=== PATIENT | female | born 1975 | race Caucasian/White ===

== ENCOUNTER 2017-05-12 20:35 | Emergency (ER) | payer SELFPAY ==
[~2017-05-12] VITALS: Ht 165.1 cm; Wt 59.0 kg
[2017-05-13] MEDS ORDERED: LORAZEPAM 2MG/ML CPJ IV ONE
[2017-05-13 00:09] LABS: BASOPHILS % 0.3 % (0.0-2.0); EOSINOPHILS % 0.6 % (0.0-5.0); HEMATOCRIT. 39.2 % (36.0-48.0); HEMOGLOBIN. 13.9 g/dL (12.0-16.0); LYMPHOCYTES % 19.1 % (20.0-50.0); MEAN CORPUSCULAR HEMOGLOBIN 33.3 pg (28.0-32.0); MEAN PLATELET VOLUME 8.4 fl (7.4-10.4); MONOCYTES % 8.6 % (2.0-8.0); NEUTROPHILS % 71.4 % (40.0-76.0); PLATELET 268 x1000/uL (130-400); RED BLOOD CELL COUNT 4.17 mill/uL (4.2-5.4); RED CELL DISTRIBUTION WIDTH 13.5 % (11.6-14.6)
[2017-05-13 00:20] LABS: CHLORIDE 100 mEq/L (98-107)
[2017-05-13 00:25] LABS: ETHANOL BLOOD < 10 mg/dL
[2017-05-13 00:45] LABS: *BARBITURATES SCREEN URINE NEGATIVE (NEGATIVE); *BENZODIAZEPINES SCREEN URINE NEGATIVE (NEGATIVE); *COCAINE SCREEN URINE NEGATIVE (NEGATIVE); METHADONE URINE SCREEN NEGATIVE (NEGATIVE)
[2017-05-13 00:45] LABS: CLARITY URINE CLEAR (CLEAR); COLOR URINE YELLOW (YELLOW)
[2017-05-13 00:46] LABS: CANNABINOID URINE SCREEN NEGATIVE (NEGATIVE); PHENCYCLIDINE URINE SCREEN NEGATIVE (NEGATIVE)
[2017-05-13 00:46] LABS: KETONES URINE TRACE (NEGATIVE); NITRITE URINE NEGATIVE (NEGATIVE); OCCULT BLOOD URINE TRACE (NEGATIVE); PROTEIN URINE TRACE (NEGATIVE); SPECIFIC GRAVITY URINE 1.019 (1.005-1.030)
[2017-05-13 00:47] LABS: LEUKOCYTE ESTERASE URINE NEGATIVE (NEGATIVE)
[2017-05-13 00:51] LABS: *AMPHETAMINES SCREEN URINE PRESUMTIVE POSITIVE (NEGATIVE); OPIATES URINE SCREEN PRESUMTIVE POSITIVE (NEGATIVE)
[2017-05-13 18:11] VITALS: BP 124/90
== END 2017-05-13 19:08 | disposition home or self-care (01) ==
LOC: ER 20:44
DX: F19.10 Other psychoactive substance abuse, uncomplicated (principal); F20.9 Schizophrenia, unspecified; F31.9 Bipolar disorder, unspecified
CPT/HCPCS: 36415; 80053; 80305; 81003; 81025; 85025; 96374; 99285; G0482; J2060; Z7610